=== PATIENT | male | born 1985 | race American Indian/Alaskan Native ===

== ENCOUNTER 2017-03-03 05:34 | Emergency (ER) | payer SELFPAY ==
[2017-03-03] MEDS ORDERED: DUONEB 0.5 MG-3 MG/3 ML SOLN IH ONE ×2 (05:51→09:44)
[2017-03-03] MEDS ORDERED: PROVENTIL IH ONE ×4 (05:52→10:30)
[2017-03-03] MEDS ORDERED: MAGNESIUM SULFATE 2GM/50ML 2 GM/50 ML BAG IV ONE ×2 (09:28→09:44)
[2017-03-03] MEDS ORDERED: ATROVENT IH ONE ×2 (09:28→09:40)
--- NOTE | 2017-03-03 10:19 | XRay Report ---
AP CHEST: HISTORY: chest pain AP view of the chest demonstrates a normal mediastinal and cardiac contour with clear lungs and normal bony and soft tissue structures. IMPRESSION: Unremarkable AP chest.
[2017-03-03 11:13] LABS: Anion Gap 19 mmol/L; BUN/Creatinine Ratio 8.33; Blood Urea Nitrogen 10 mg/dL (9-20); Calcium 8.8 mg/dL (8.4-10.2); Carbon Dioxide 23 mmol/L (22-30); Glucose 107 mg/dL (75-100); Potassium 4.2 mmol/L (3.6-5.0); Sodium 138 mmol/L (137-145)
[2017-03-03 11:18] LABS: Hematocrit 44.7 % (35.5-45.6); Hemoglobin 14.7 gm/dl (11.8-15.2); Mean Corpuscular HGB Conc 33 % (32-34); Mean Corpuscular Hemoglobin 28 pg (28-32); Mean Corpuscular Volume 85 fl (84-94); Platelet Count 149 K/mm3 (140-440); Red Blood Count 5.25 M/mm3 (3.65-5.03)
--- NOTE | 2017-03-03 12:25 | Emergency Department Report ---
HPI - General Chief Complaint: Adult Asthma Time Seen by Provider: 03/03/17 09:55 - HPI HPI: The patient is a 31-year-old male who presents for evaluation of dyspnea. The patient has history of asthma. The patient reports constant and severe dyspnea since 3 AM, redness 6 hours prior to my evaluation, exacerbated with lying flat and exertion, improved with sitting up on the rest. The patient denies fever, cough, chest pain, syncope, hemoptysis, unilateral leg swelling, recent immobilization, history of DVT or PE, recent cancer/surgery. ED Past Medical Hx - Past Medical History Previous Medical History?: Yes Hx Asthma: Yes - Surgical History Past Surgical History?: No - Social History Smoking Status: Current Every Day Smoker Substance Use Type: Alcohol - Medications Home Medications: Home Medications Medication Instructions Recorded Confirmed Last Taken Type ALBUTEROL Inhaler [ProAir HFA 2 puff IH QID PRN #1 inhalation 03/03/17 Unknown Rx Inhaler] Prednisone [predniSONE 10 mg 10 mg PO .TAPER #1 tab.ds.pk 03/03/17 Unknown Rx (6-Day Pack, 21 Tabs)] ED Review of Systems ROS: Stated complaint: ASTHMA Other details as noted in HPI Constitutional: denies: fever ENT: denies: throat or neck pain Respiratory: denies: cough reports shortness of breath Cardiovascular: denies: chest pain Endocrine: denies unexplained weight loss or gain Gastrointestinal: denies: abdominal pain, nausea Genitourinary: denies: dysuria Musculoskeletal: denies: leg swelling Skin: denies: rash Neurological: denies: headache Hematological/Lymphatic: denies: easy bleeding or easy bruising Psych: denies sadness or hopelessness Physical Exam - Physical Exam Vital Signs: Vital Signs 03/03/17 03/03/17 03/03/17 05:39 05:59 06:22 Temperature 97.9 F Pulse Rate 100 H Pulse Rate [ 104 H 91 H Throughout] Respiratory 24 Rate Respiratory 20 20 Rate [ Throughout] Blood Pressure 146/97 Blood Pressure [Left] O2 Sat by Pulse 95 Oximetry 03/03/17 03/03/17 03/03/17 09:40 09:45 10:40 Temperature Pulse Rate Pulse Rate [ 94 H 93 H Throughout] Respiratory 30 H Rate Respiratory 22 21 Rate [ Throughout] Blood Pressure Blood Pressure [Left] O2 Sat by Pulse 94 Oximetry 03/03/17 03/03/17 11:06 11:29 Temperature Pulse Rate 100 H Pulse Rate [ 93 H Throughout] Respiratory 24 Rate Respiratory 18 Rate [ Throughout] Blood Pressure Blood Pressure 122/81 [Left] O2 Sat by Pulse 95 Oximetry Physical Exam: General: well-nourished, well-developed, no acute distress Head: Normocephalic, atraumatic Eyes: normal sclera ENT: Mucous membranes are pink and moist Neck: trachea midline, neck supple, No neck stiffness, no cervical adenopathy Respiratory: Diminished breath sounds and wheezing present throughout lung durán bilaterally Cardio: S1 and S2 present, no murmurs, rubs, gallops, capillary refill is brisk Abdomen: Normoactive bowel sounds, soft abdomen, no rigidity, no guarding or rebound tenderness Musc: No pitting edema Skin: No rash Neuro: no facial drooping, normal speech Psych: Normal affect ED Course Vital Signs 03/03/17 03/03/17 03/03/17 05:39 05:59 06:22 Temperature 97.9 F Pulse Rate 100 H Pulse Rate [ 104 H 91 H Throughout] Respiratory 24 Rate Respiratory 20 20 Rate [ Throughout] Blood Pressure 146/97 Blood Pressure [Left] O2 Sat by Pulse 95 Oximetry 03/03/17 03/03/17 03/03/17 09:40 09:45 10:40 Temperature Pulse Rate Pulse Rate [ 94 H 93 H Throughout] Respiratory 30 H Rate Respiratory 22 21 Rate [ Throughout] Blood Pressure Blood Pressure [Left] O2 Sat by Pulse 94 Oximetry 03/03/17 03/03/17 11:06 11:29 Temperature Pulse Rate 100 H Pulse Rate [ 93 H Throughout] Respiratory 24 Rate Respiratory 18 Rate [ Throughout] Blood Pressure Blood Pressure 122/81 [Left] O2 Sat by Pulse 95 Oximetry ED Medical Decision Making - Lab Data Result diagrams: 03/03/17 10:40 03/03/17 10:40 - Medical Decision Making The patient was seen and examined by myself. The patient is placed on a case monitor and continuous pulse ox. On initial evaluation, the patient was found to be in no distress. Evaluation orders were placed. The patient is given multiple DuoNeb breathing treatment, IV magnesium, and IV Solu-Medrol for txt of his asthma exacerbation. Chest x-ray negative for focal consolidation, pleural effusions, pulmonary congestion, pneumothorax, or other acute cardio pulmonary disease process. Lab results are grossly not concerning. The patient was reevaluated and reported that their symptoms were markedly improved. On reexamination the patient is found to have normal respiratory rate and O2 sat on pulse oximetry, with no costal retractions or diminishment of breath sounds on auscultation, and minimal end-expiratory wheezing. The patient is stable for discharge with outpatient follow-up. The patient is given follow-up and return instructions. The patient expressed understanding and agreed with the plan. The patient is discharged in stable condition. Critical care attestation.: If time is entered above; I have spent that time in minutes in the direct care of this critically ill patient, excluding procedure time. ED Disposition Clinical Impression: Asthma with acute exacerbation in adult Disposition: DISCHARGED TO HOME OR SELFCARE Is pt being admited?: No Does the pt Need Aspirin: No Condition: Stable Instructions: Asthma (ED) Prescriptions: ALBUTEROL Inhaler [ProAir HFA Inhaler] 2 puff IH QID PRN #1 inhalation PRN Reason: Shortness Of Breath Prednisone [predniSONE 10 mg (6-Day Pack, 21 Tabs)] 10 mg PO .TAPER #1 tab.ds.pk Referrals: PRIMARY CARE, [Primary Care Provider] - 3-5 Days Time of Disposition: 12:21
[2017-03-03 12:29] VITALS: BP 128/84
== END 2017-03-03 12:28 | disposition home or self-care (01) ==
LOC: ED 05:34
DX: J45.901 Unspecified asthma with (acute) exacerbation (principal); F17.200 Nicotine dependence, unspecified, uncomplicated
CPT/HCPCS: 36415; 71010; 80048; 83880; 85027; 94640; 96365; 96375; 99285; J2930; J3475

== ENCOUNTER 2020-09-06 19:49 | Emergency (ER) | payer SELFPAY ==
[2020-09-06 21:01] VITALS: BP 115/71
[2020-09-06] MEDS ORDERED: ALBUTEROL 2.5 MG/3 ML NEBU IH ONE (21:04)
[2020-09-06] MEDS ORDERED: dexAMETHasone 20 MG/5 ML VIAL IM ONE (21:04)
[2020-09-06] MEDS ORDERED: IPRATROPIUM 0.02% NEBU 2.5 ML IH ONE (21:04)
--- NOTE | 2020-09-06 21:05 | Emergency Department Report ---
Blank Doc - Documentation Documentation: 34-year-old male that presents with SOB and wheezing. This initial assessment/diagnostic orders/clinical plan/treatment(s) is/are subject to change based on patient's health status, clinical progression and re- assessment by fellow clinical providers in the ED. Further treatment and workup at subsequent clinical providers discretion. Patient/guardians urged not to elope from the ED as their condition may be serious if not clinically assessed and managed. Initial orders include: 1- Patient sent to [facility] for further evaluation and treatment 2- breathing treatment/steroids
[2020-09-06] MEDS ORDERED: MAGNESIUM SULFATE 2 GM/50 ML BAG IV ONE (21:17)
[2020-09-06] MEDS ORDERED: SODIUM CHLORIDE 0.9% 1000 ML 1,000 ML IV ONE (21:18)
--- NOTE | 2020-09-06 21:54 | Emergency Department Report ---
ED Shortness of Breath HPI - General Chief Complaint: Adult Asthma Stated Complaint: DIFFICULTY IN BREATHING Time Seen by Provider: 09/06/20 21:04 Source: patient Mode of arrival: Ambulatory Limitations: No Limitations - History of Present Illness Initial Comments: Patient is a 34-year-old -Tongan male with a history of asthma and heavy tobacco abuse who presents to the ED with complaint of acute onset persistent shortness of breath, mild dry cough with wheezing, chest tightness and nasal and sinus congestion for the last 2 days, worse in the last 12 hours. Patient states that he has used albuterol inhaler prior to arrival in the ED with no relief. Patient denies fever, chills, nausea, vomiting, diarrhea, chest pain, sore throat, abdominal pain, diarrhea, palpitations, syncope, dizziness, headache, change in vision or seizures. MD Complaint: shortness of breath, cough, "asthma attack" -: Sudden, days(s) (2) Quality: other (Chest tightness) Consistency: constant Improves With: nothing, other (Used bronchodilators with no relief) Worsens With: nothing Known History Of: asthma Context: recent URI, allergen exposure, other (chronic cigarette smoker) Associated Symptoms: cough Treatments Prior to Arrival: bronchodilator - Related Data Home Oxygen Therapy: No Previous Rx's Medication Instructions Recorded Last Taken Type Albuterol Mdi (or & Nicu Only) 2 puff IH QID PRN #1 inhalation 03/03/17 Unknown Rx [ProAir HFA Inhaler] Prednisone [predniSONE 10 mg 10 mg PO .TAPER #1 tab.ds.pk 03/03/17 Unknown Rx (6-Day Pack, 21 Tabs)] Prednisone [predniSONE 10 mg 10 mg PO .TAPER #1 tab.ds.pk 10/19/18 Unknown Rx (6-Day Pack, 21 Tabs)] Albuterol Mdi (or & Nicu Only) 2 puff IH QID PRN #1 inhalation 02/25/20 Unknown Rx [ProAir HFA Inhaler] predniSONE [Deltasone] 20 mg PO QDAY #5 tab 02/25/20 Unknown Rx Azithromycin [Zithromax Z-NEIDA] 250 mg PO DAILY #6 tablet 09/07/20 Unknown Rx Benzonatate [Tessalon Perles] 100 mg PO Q8HR #30 capsule 09/07/20 Unknown Rx predniSONE [Deltasone] 40 mg PO QDAY #10 tab 09/07/20 Unknown Rx Allergies Allergy/AdvReac Type Severity Reaction Status Date / Time No Known Allergies Allergy Verified 04/07/20 19:30 ED Review of Systems ROS: Stated complaint: DIFFICULTY IN BREATHING Other details as noted in HPI Constitutional: denies: chills, fever Eyes: denies: eye pain, eye discharge, vision change ENT: congestion. denies: ear pain, throat pain Respiratory: cough, shortness of breath, wheezing Cardiovascular: chest pain (Chest tightness). denies: palpitations Endocrine: no symptoms reported Gastrointestinal: denies: abdominal pain, nausea, vomiting, diarrhea Genitourinary: denies: urgency, dysuria Musculoskeletal: denies: back pain, joint swelling, arthralgia Skin: denies: rash, lesions Neurological: denies: headache, weakness, paresthesias Psychiatric: denies: anxiety, depression Hematological/Lymphatic: denies: easy bleeding, easy bruising ED Past Medical Hx - Past Medical History Previous Medical History?: Yes Hx Asthma: Yes - Surgical History Past Surgical History?: No - Social History Smoking Status: Current Every Day Smoker Substance Use Type: None - Medications Home Medications: Home Medications Medication Instructions Recorded Confirmed Last Taken Type Albuterol Mdi (or & Nicu Only) 2 puff IH QID PRN #1 inhalation 03/03/17 Unknown Rx [ProAir HFA Inhaler] Prednisone [predniSONE 10 mg 10 mg PO .TAPER #1 tab.ds.pk 03/03/17 Unknown Rx (6-Day Pack, 21 Tabs)] Prednisone [predniSONE 10 mg 10 mg PO .TAPER #1 tab.ds.pk 10/19/18 Unknown Rx (6-Day Pack, 21 Tabs)] Albuterol Mdi (or & Nicu Only) 2 puff IH QID PRN #1 inhalation 02/25/20 Unknown Rx [ProAir HFA Inhaler] predniSONE [Deltasone] 20 mg PO QDAY #5 tab 02/25/20 Unknown Rx Azithromycin [Zithromax Z-NEIDA] 250 mg PO DAILY #6 tablet 09/07/20 Unknown Rx Benzonatate [Tessalon Perles] 100 mg PO Q8HR #30 capsule 09/07/20 Unknown Rx predniSONE [Deltasone] 40 mg PO QDAY #10 tab 09/07/20 Unknown Rx ED Physical Exam - General Limitations: No Limitations General appearance: alert, in no apparent distress - Head Head exam: Present: atraumatic, normocephalic, normal inspection - Eye Eye exam: Present: normal appearance, PERRL, EOMI Pupils: Present: normal accommodation - ENT ENT exam: Present: normal orophraynx, mucous membranes moist, TM's normal bilaterally, normal external ear exam, other (Grossly congested nasal passages) - Neck Neck exam: Present: normal inspection, full ROM - Respiratory Respiratory exam: Present: normal lung sounds bilaterally, wheezes (Diffuse moderate coarse wheezes throughout). Absent: respiratory distress, rales, rhonchi, chest wall tenderness, accessory muscle use, decreased breath sounds - Cardiovascular Cardiovascular Exam: Present: normal rhythm, tachycardia, normal heart sounds. Absent: systolic murmur, diastolic murmur, rubs, gallop - GI/Abdominal GI/Abdominal exam: Present: soft, normal bowel sounds. Absent: tenderness, guarding, rebound, hyperactive bowel sounds, hypoactive bowel sounds, organomegaly - Extremities Exam Extremities exam: Present: normal inspection, full ROM, normal capillary refill - Back Exam Back exam: Present: normal inspection, full ROM. Absent: tenderness, CVA tenderness (R), CVA tenderness (L), muscle spasm, paraspinal tenderness - Neurological Exam Neurological exam: Present: alert, oriented X3, CN II-XII intact, normal gait, reflexes normal - Psychiatric Psychiatric exam: Present: normal affect, normal mood, anxious - Skin Skin exam: Present: warm, dry, intact, normal color. Absent: rash ED Course Vital Signs 09/06/20 09/06/20 21:00 21:54 Temperature 97.6 F Pulse Rate 105 H Pulse Rate [ 95 H Bilateral Throughout] Respiratory 17 Rate Respiratory 20 Rate [Bilateral Throughout] Blood Pressure 115/71 O2 Sat by Pulse 92 Oximetry ED Medical Decision Making - Lab Data Result diagrams: 09/06/20 21:40 09/06/20 21:40 - Radiology Data Radiology results: report reviewed, image reviewed Findings [facility] [address] [place] [address] XRay Report Signed Patient: ROXANA MARX III MR#: [id number] : 1985 Acct:[id number] Age/Sex: 34 / M ADM Date: 09/06/20 Loc: ED Attending Dr: Ordering Physician: PAKO MOORE Date of Service: 09/06/20 Procedure(s): XR chest 1V ap Accession Number(s): [id number] cc: PAKO MOORE Fluoro Time In Minutes: CHEST 1 VIEW INDICATION / CLINICAL INFORMATION: cough, dyspnea. FINDINGS: SUPPORT DEVICES: None. HEART / MEDIASTINUM: No significant abnormality. LUNGS / PLEURA: No significant pulmonary or pleural abnormality. No pneumothorax. ADDITIONAL FINDINGS: No significant additional findings. IMPRESSION: 1. No acute findings. Signer Name: Remy Long MD Signed: 09/06/2020 10:41 PM Workstation Name: [id number] Transcribed By: BC Dictated By: Remy Long MD Electronically Authenticated By: Remy Long MD Signed Date/Time: 09/06/202240 DD/ 39 TD/TT: - Medical Decision Making This is a 34-year-old -Tongan male with a history of asthma and heavy tobacco abuse who presents to the ED with complaint of acute onset persistent shortness of breath, mild dry cough with wheezing, chest tightness and nasal and sinus congestion for the last 2 days, worse in the last 12 hours. Patient states that he has used albuterol inhaler prior to arrival in the ED with no relief. In the ED, patient is alert and oriented x3 and is not in distress. Patient was treated in the ED with albuterol nebulizer and Decadron injection in the ED. Lab test results were reviewed and are all nonactionable. Chest x-ray shows no acute cardiopulmonary abnormalities or pneumonitis. On reevaluation, patient's wheezing resolved and shortness of breath also resolved. Patient's oxygen saturation ranges from 96% to 98% in room air. Patient was then discharged home on medications and advised to follow-up with his primary care physician in 5 to 7 days for reevaluation or return to the ED immediately if symptoms get worse. - Differential Diagnosis Pneumonia; Asthma; Bronchitis; URI; Sinusitis; Covid-19 Critical care attestation.: If time is entered above; I have spent that time in minutes in the direct care of this critically ill patient, excluding procedure time. ED Disposition Clinical Impression: Shortness of breath, Acute upper respiratory infection Acute asthma exacerbation Qualifiers: Asthma severity: mild Asthma persistence: intermittent Qualified Code(s): J45.21 - Mild intermittent asthma with (acute) exacerbation Acute sinusitis, unspecified Qualifiers: Sinusitis location: pansinusitis Recurrence: non-recurrent Qualified Code(s): J01.40 - Acute pansinusitis, unspecified Disposition: TO HOME OR SELFCARE Is pt being admited?: No Does the pt Need Aspirin: No Condition: Stable Instructions: Asthma (ED), Acute Bronchitis (ED), Acute Bacterial Rhinosinusitis (ED), Dyspnea (ED) Additional Instructions: Take medication with food, drink plenty of fluids and follow-up with your primary care physician in 5 to 7 days for reevaluation, return to the ED immediately if symptoms get worse. Consider quitting tobacco smoking habit to improve on your symptoms. Prescriptions: predniSONE [Deltasone] 40 mg PO QDAY #10 tab Benzonatate [Tessalon Perles] 100 mg PO Q8HR #30 capsule Azithromycin [Zithromax Z-NEIDA] 250 mg PO DAILY #6 tablet Referrals: [facility] [Provider Group] - 3-5 Days Time of Disposition: :46 Print Language: BULGARIAN
[2020-09-06 21:57] LABS: Basophils # (Auto) 0.1 K/mm3 (0.0-0.1); Basophils % (Auto) 0.8 % (0.0-1.8); Eosinophils # (Auto) 0.6 K/mm3 (0.0-0.4); Eosinophils % (Auto) 7.4 % (0.0-4.3); Hematocrit 45.5 % (35.5-45.6); Hemoglobin 15.3 gm/dl (11.8-15.2); Lymphocytes # (Auto) 2.1 K/mm3 (1.2-5.4); Lymphocytes % (Auto) 24.7 % (13.4-35.0); Mean Corpuscular HGB Conc 34 % (32-34); Mean Corpuscular Volume 88 fl (84-94); Monocytes # (Auto) 0.6 K/mm3 (0.0-0.8); Monocytes % (Auto) 7.2 % (0.0-7.3); Platelet Count 193 K/mm3 (140-440); Red Cell Distribution Width 14.5 % (13.2-15.2)
[2020-09-06 22:31] LABS: Alanine Aminotransferase 25 units/L (7-56); Albumin 4.2 g/dL (3.9-5); BUN/Creatinine Ratio 9; Blood Urea Nitrogen 12 mg/dL (9-20); Calcium 8.8 mg/dL (8.4-10.2); Hemolysis Index 18
--- NOTE | 2020-09-06 22:45 | XRay Report ---
CHEST 1 VIEW INDICATION / CLINICAL INFORMATION: cough, dyspnea. FINDINGS: SUPPORT DEVICES: None. HEART / MEDIASTINUM: No significant abnormality. LUNGS / PLEURA: No significant pulmonary or pleural abnormality. No pneumothorax. ADDITIONAL FINDINGS: No significant additional findings. IMPRESSION: 1. No acute findings. Signer Name: Remy Long MD Signed: 09/06/2020 10:41 PM Workstation Name: [id number]
== END 2020-09-07 01:55 | disposition home or self-care (01) ==
LOC: ED 19:49
DX: J45.901 Unspecified asthma with (acute) exacerbation (principal); J01.10 Acute frontal sinusitis, unspecified; J06.9 Acute upper respiratory infection, unspecified; F17.200 Nicotine dependence, unspecified, uncomplicated
CPT/HCPCS: 36415; 71045; 80053; 85025; 94644; 96365; 96372; 99284; J1100; J3475; J7030

== ENCOUNTER 2022-03-06 01:20 | Emergency (ER) | payer OTHER ==
[2022-03-06] MEDS ORDERED: ALBUTEROL 2.5 MG/3 ML NEBU IH ONE (02:14)
[2022-03-06] MEDS ORDERED: methylPREDNISolone Sod Succinate 125 MG/2 ML INJ IM ONE (02:14)
[2022-03-06] MEDS ORDERED: IPRATROPIUM/ALBUTEROL SULFATE 3 ML AMPUL.NEB IH ONE (03:24)
--- NOTE | 2022-03-06 04:08 | Emergency Department Report ---
ED Asthma HPI - General Chief Complaint: Adult Asthma Stated Complaint: ASTHMA ATTACK Time Seen by Provider: 03/06/22 02:15 Source: patient, family Mode of arrival: Ambulatory Limitations: No Limitations - History of Present Illness Initial Comments: 36 yom with pmh of asthma presents to ed for evaluation of wheezing and sob. He states that he ran out of his albuterol, atrovent and symbicort inhalers then developed worsening sob and wheezing. He denies fever, cough, and congestion. MD Complaint: "asthma attack", shortness of breath, wheezing -: Gradual, days(s) (2) Asthma History: childhood onset Severity: moderate Context: other (ran out of medications) Associated Symptoms: denies: productive cough, dry cough, fever, chest pain, hemoptysis, leg edema, syncope - Related Data Previous Rx's Medication Instructions Recorded Last Taken Type Albuterol Mdi (or & Nicu Only) 2 puff IH QID PRN #1 inhalation 03/03/17 Unknown Rx [ProAir HFA Inhaler] Prednisone [predniSONE 10 mg 10 mg PO .TAPER #1 tab.ds.pk 03/03/17 Unknown Rx (6-Day Pack, 21 Tabs)] Prednisone [predniSONE 10 mg 10 mg PO .TAPER #1 tab.ds.pk 10/19/18 Unknown Rx (6-Day Pack, 21 Tabs)] Albuterol Mdi (or & Nicu Only) 2 puff IH QID PRN #1 inhalation 02/25/20 Unknown Rx [ProAir HFA Inhaler] predniSONE [Deltasone] 20 mg PO QDAY #5 tab 02/25/20 Unknown Rx Azithromycin [Zithromax Z-NEIDA] 250 mg PO DAILY #6 tablet 09/07/20 Unknown Rx Benzonatate [Tessalon Perles] 100 mg PO Q8HR #30 capsule 09/07/20 Unknown Rx predniSONE [Deltasone] 40 mg PO QDAY #10 tab 09/07/20 Unknown Rx Albuterol Mdi (or & Nicu Only) 2 puff IH QID PRN #8.5 gram 03/06/22 Unknown Rx [ProAir HFA Inhaler] Budesonide/Formoterol Fumarate 10.2 gm IH BID #1 inhalation 03/06/22 Unknown Rx [Symbicort 160-4.5 Mcg Inhaler] Ipratropium (Nf) [Atrovent] 2 puff IH Q6HR PRN #1 inha 03/06/22 Unknown Rx Prednisone [predniSONE 10 mg 10 mg PO .TAPER #1 pack 03/06/22 Unknown Rx (6-Day Pack, 21 Tabs)] Allergies Allergy/AdvReac Type Severity Reaction Status Date / Time No Known Allergies Allergy Verified 04/07/20 19:30 ED Review of Systems ROS: Stated complaint: ASTHMA ATTACK Other details as noted in HPI Constitutional: denies: chills, fever ENT: denies: congestion Respiratory: shortness of breath, wheezing. denies: cough, SOB with exertion, SOB at rest, stridor Cardiovascular: denies: chest pain, palpitations, dyspnea on exertion, orthopnea, edema, syncope, paroxysmal nocturnal dyspnea Gastrointestinal: denies: abdominal pain, nausea, vomiting Genitourinary: denies: urgency, dysuria, frequency, hematuria, discharge, testicular pain Musculoskeletal: denies: back pain Neurological: denies: headache ED Past Medical Hx - Past Medical History Hx Asthma: Yes - Social History Smoking Status: Current Every Day Smoker Substance Use Type: None - Medications Home Medications: Home Medications Medication Instructions Recorded Confirmed Last Taken Type Albuterol Mdi (or & Nicu Only) 2 puff IH QID PRN #1 inhalation 03/03/17 Unknown Rx [ProAir HFA Inhaler] Prednisone [predniSONE 10 mg 10 mg PO .TAPER #1 tab.ds.pk 03/03/17 Unknown Rx (6-Day Pack, 21 Tabs)] Prednisone [predniSONE 10 mg 10 mg PO .TAPER #1 tab.ds.pk 10/19/18 Unknown Rx (6-Day Pack, 21 Tabs)] Albuterol Mdi (or & Nicu Only) 2 puff IH QID PRN #1 inhalation 02/25/20 Unknown Rx [ProAir HFA Inhaler] predniSONE [Deltasone] 20 mg PO QDAY #5 tab 02/25/20 Unknown Rx Azithromycin [Zithromax Z-NEIDA] 250 mg PO DAILY #6 tablet 09/07/20 Unknown Rx Benzonatate [Tessalon Perles] 100 mg PO Q8HR #30 capsule 09/07/20 Unknown Rx predniSONE [Deltasone] 40 mg PO QDAY #10 tab 09/07/20 Unknown Rx Albuterol Mdi (or & Nicu Only) 2 puff IH QID PRN #8.5 gram 03/06/22 Unknown Rx [ProAir HFA Inhaler] Budesonide/Formoterol Fumarate 10.2 gm IH BID #1 inhalation 03/06/22 Unknown Rx [Symbicort 160-4.5 Mcg Inhaler] Ipratropium (Nf) [Atrovent] 2 puff IH Q6HR PRN #1 inha 03/06/22 Unknown Rx Prednisone [predniSONE 10 mg 10 mg PO .TAPER #1 pack 03/06/22 Unknown Rx (6-Day Pack, 21 Tabs)] ED Physical Exam - General Limitations: No Limitations General appearance: alert, in no apparent distress - Head Head exam: Present: atraumatic, normocephalic - Eye Eye exam: Present: normal appearance. Absent: conjunctival injection - Neck Neck exam: Present: normal inspection, full ROM. Absent: tenderness, lymphadenopathy - Respiratory Respiratory exam: Present: wheezes. Absent: normal lung sounds bilaterally, respiratory distress, rales, rhonchi, stridor, chest wall tenderness - Cardiovascular Cardiovascular Exam: Present: regular rate, normal heart sounds - GI/Abdominal GI/Abdominal exam: Present: soft, normal bowel sounds. Absent: distended, tenderness, guarding, rebound, rigid - Extremities Exam Extremities exam: Present: normal inspection, normal capillary refill. Absent: tenderness, pedal edema, joint swelling, calf tenderness - Back Exam Back exam: Present: normal inspection. Absent: CVA tenderness (R), CVA tenderness (L) - Neurological Exam Neurological exam: Present: alert, oriented X3 - Psychiatric Psychiatric exam: Present: normal affect, normal mood - Skin Skin exam: Present: warm, dry, intact, normal color ED Course Vital Signs 03/06/22 03/06/22 01:35 04:26 Temperature 97.8 F Pulse Rate 80 82 Respiratory 22 12 Rate Blood Pressure 133/90 137/90 [Right] O2 Sat by Pulse 94 100 Oximetry - Reevaluation(s) Reevaluation #1: 03/06/22 03:59 Wheezing significantly improved, and patient states that he feels much better. ED Medical Decision Making - Medical Decision Making 36 yom with pmh of asthma presents to ed for evaluation of wheezing and sob. He states that he ran out of his albuterol, atrovent and symbicort inhalers then developed worsening sob and wheezing. He denies fever, cough, and congestion. Wheezing and sob improved significantly after duonebs and steroids. Patient will be treated for asthma exacerbation and treated with steroid dose pack with refill of albuterol, atrovent and symbicort inhalers. He is advised to take medications as prescribed and follow up with pcp or pulmonary if no improvement or worsening symptoms. He verbalized understanding of and agreement with plan of care. Critical care attestation.: If time is entered above; I have spent that time in minutes in the direct care of this critically ill patient, excluding procedure time. ED Disposition Clinical Impression: Asthma Qualifiers: Asthma severity: mild Asthma persistence: intermittent Asthma complication type: with acute exacerbation Qualified Code(s): J45.21 - Mild intermittent asthma with (acute) exacerbation Disposition: 01 HOME / SELF CARE / HOMELESS Is pt being admited?: No Does the pt Need Aspirin: No Condition: Stable Instructions: Asthma, Adult, [id number], Asthma Attack Prevention, Adult, Asthma (ED) Additional Instructions: Take medications as prescribed. Follow-up with primary care provider or hourly shift if no improvement or worsening symptoms. Return to the emergency department as needed. Prescriptions: Ipratropium (Nf) [Atrovent] 2 puff IH Q6HR PRN #1 inha PRN Reason: Wheezing Prednisone [predniSONE 10 mg (6-Day Pack, 21 Tabs)] 10 mg PO .TAPER #1 pack Albuterol Mdi (or & Nicu Only) [ProAir HFA Inhaler] 2 puff IH QID PRN #8.5 gram PRN Reason: Shortness Of Breath Budesonide/Formoterol Fumarate [Symbicort 160-4.5 Mcg Inhaler] 10.2 gm IH BID #1 inhalation Referrals: JEANETTE WELLS MD [Staff Physician] - 3-5 Days Forms: Work/School Release Form(ED) Time of Disposition: 04:09
[2022-03-06 04:32] VITALS: BP 137/90
== END 2022-03-06 04:27 | disposition home or self-care (01) ==
LOC: ED 01:20
DX: J45.909 Unspecified asthma, uncomplicated (principal); F17.200 Nicotine dependence, unspecified, uncomplicated; Z79.899 Other long term (current) drug therapy
CPT/HCPCS: 94640; 96372; 99283; J2930